=== PATIENT | male | born 1985 | race Caucasian/White ===

== ENCOUNTER 2020-05-28 22:10 | Observation (INO) | payer BC ==
[~2020-05-28] VITALS: Ht 185.4 cm; Wt 125.0 kg
[2020-05-28] MEDS ORDERED: normal saline 1000ML IV soln IVB ONE (22:30)
[2020-05-28 22:51] LABS: BASOPHILS # (AUTO) 0.1 X10'3 (0-0.2); BASOPHILS % (AUTO) 0.4 % (0-1); EOSINOPHILS # (AUTO) 0.1 X10'3 (0-0.9); HEMATOCRIT 45.9 % (42.0-52.0); HEMOGLOBIN 15.8 g/dl (14.0-17.9); LYMPHOCYTES # (AUTO) 1.5 X10'3 (1.1-4.8); LYMPHOCYTES % (AUTO) 11.5 % (21-51); MEAN CORPUSCULAR HEMOGLOBIN 29.3 PG (27.0-31.0); MEAN CORPUSCULAR HGB CONC 34.5 g/dL (33.0-36.5); MEAN CORPUSCULAR VOLUME 85.1 FL (78-98); MEAN PLATELET VOLUME 8.3 FL (7.4-10.4); MONOCYTES # (AUTO) 0.7 X10'3 (0-0.9); MONOCYTES % (AUTO) 5.2 % (2-12); NEUTROPHILS # (AUTO) 10.6 X10'3 (1.8-7.7); NEUTROPHILS % (AUTO) 81.9 % (42-75); PLATELET COUNT 197 X10'3 (140-440); RED CELL DISTRIBUTION WIDTH 13.6 % (11.5-14.5); WHITE BLOOD COUNT 12.9 X10'3 (4.5-11.0)
[2020-05-28 22:58] LABS: ALANINE AMINOTRANSFERASE 50 U/L (12-78); ALBUMIN 4.3 G/DL (3.4-5.0); ALBUMIN/GLOBULIN RATIO 1.2 (1.1-1.5); ALKALINE PHOSPHATASE 60 IU/L (46-116); ANION GAP 7 (8-16); ASPARTATE AMINO TRANSFERASE 22 U/L (10-37); BILIRUBIN,TOTAL 0.5 MG/DL (0.1-1.0); BLOOD UREA NITROGEN 17 MG/DL (7-18); BUN/CREATININE RATIO 14.8 (5.4-32.0); CALCIUM 8.9 MG/DL (8.5-10.1); CHLORIDE 104 MMOL/L (99-107); CREATININE 1.15 MG/DL (0.60-1.10); GLUCOSE 91 MG/DL (70-104); POTASSIUM 3.6 MMOL/L (3.5-5.1); SODIUM 139 MMOL/L (135-145); TOTAL CARBON DIOXIDE 28.2 MMOL/L (24-32); eGFR 72 ML/MIN
[2020-05-28 23:06] LABS: ETHANOL < 0.010 GM/DL (0.0-0.010)
[2020-05-29 00:21] LABS: CLARITY,URINE CLEAR (Clear); COLOR,URINE YELLOW (Yellow); GLUCOSE, URINE NEGATIVE (Neg); KETONES,URINE NEGATIVE (Neg); LEUKOCYTE ESTERASE ,URINE NEGATIVE (Neg); NITRITES, URINE NEGATIVE (Neg); OCCULT BLOOD,URINE NEGATIVE (Neg); PROTEIN,URINE NEGATIVE (Neg); UROBILINOGEN,URINE 0.2 E.U/dL (0.2-1.0)
[2020-05-29 00:26] LABS: UA COLLECTION TYPE VOIDED
[2020-05-29] MEDS ORDERED: NO HOME MEDS (00:27)
[2020-05-29 00:39] LABS: URINE AMPHETAMINE SCREEN NEGATIVE (Neg); URINE BARBITUATE SCREEN NEGATIVE (Neg); URINE BENZODIAZEPINES SCREEN NEGATIVE (Neg); URINE CANNABINOID SCREEN POSITIVE (Neg); URINE COCAINE SCREEN NEGATIVE (Neg); URINE METHADONE SCREEN NEGATIVE (Neg); URINE OPIATE SCREEN NEGATIVE (Neg); URINE PHENCYCLIDINE SCREEN NEGATIVE (Neg)
[2020-05-29] MEDS ORDERED: HYDROcodone/acetaminophen 5mg/325mg tablet PO PRN (00:40)
[2020-05-29] MEDS ORDERED: magnesium hydroxide 30ml (MOM) UD suspension PO PRN (00:40)
[2020-05-29] MEDS ORDERED: mag hydrox/Alum hydrox/simeth 30ml oral suspension PO PRN (00:40)
[2020-05-29] MEDS ORDERED: ondansetron/PF 4mg/2ml inj IV PRN (00:40)
[2020-05-29] MEDS ORDERED: magnesium 2GM in 50ml NS 50 ML IV PRN (00:40)
[2020-05-29] MEDS ORDERED: acetaminophen 325mg tablet PO PRN (00:40)
[2020-05-29] MEDS ORDERED: potassium Cl 40MEQ/1/2NS 520ml 520 ML IV PRN ×2 (00:40)
[2020-05-29] MEDS ORDERED: magnesium 4gm in 100ml NS 100 ML IV PRN (00:40)
[2020-05-29] MEDS ORDERED: potassium Cl 20 mEq SR tablet PO PRN ×2 (00:40)
[2020-05-29] MEDS ORDERED: magnesium Cl slow-release 64mg tablet PO PRN (00:40)
[2020-05-29] MEDS: K and/or MAG REPLACEMENT MC SCH ×5 (08:00→21:30)
--- NOTE | 2020-05-29 09:34 | NUR ---
Dr. Underwood at bedside.
--- NOTE | 2020-05-29 09:46 | NUR ---
lead technical writer at bedside.
--- NOTE | 2020-05-29 11:50 | NUR ---
Witnessed acevedo count w/ Yolanda in preparation of giving pt's Felicita his acevedo; total=$1400 (7x$100; 35x$20).
--- NOTE | 2020-05-29 11:55 | NUR ---
Delivered $1,400.00 acevedo to patient's Felicita. Money counted and verified with Felicita who signed an informal attestation of receipt of acevedo. Placed note on chart.
--- NOTE | 2020-05-29 15:15 | NUR ---
patient arrived from er. no distress noted at thistime. pt able to move all extremities. pt denies chest pain and headache. pt has an iv to left ac. 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 all vs wnl. pt ready to go home.
[2020-05-29 18:00] VITALS: BP 129/64
[2020-05-29 19:13] VITALS: BP 129/64
[2020-05-29 22:00] VITALS: BP 111/75
[2020-05-30 02:00] VITALS: BP 139/60
[2020-05-30 06:30] VITALS: BP 89/54
--- NOTE | 2020-05-30 06:30 | NUR ---
Patient in room PCU 3026. I have received report from MADELIN BRAGA and had the opportunity to ask questions and assume patient care. CALL LIGHT IN REACH. PT CONTEMPLATING AMA HE WANTS TO GO HOME. Addendum: 05/30/20 at 1020 by Joan Maldonado RN Amended: Links added.
[2020-05-30 08:01] LABS: BASOPHILS # (AUTO) 0.1 X10'3 (0-0.2); BASOPHILS % (AUTO) 0.8 % (0-1); EOSINOPHILS # (AUTO) 0.3 X10'3 (0-0.9); EOSINOPHILS % (AUTO) 3.9 % (0-6); HEMATOCRIT 44.7 % (42.0-52.0); HEMOGLOBIN 15.6 g/dl (14.0-17.9); LYMPHOCYTES # (AUTO) 2.2 X10'3 (1.1-4.8); LYMPHOCYTES % (AUTO) 32.8 % (21-51); MEAN CORPUSCULAR HEMOGLOBIN 29.5 PG (27.0-31.0); MEAN CORPUSCULAR HGB CONC 34.8 g/dL (33.0-36.5); MEAN CORPUSCULAR VOLUME 84.8 FL (78-98); MEAN PLATELET VOLUME 8.7 FL (7.4-10.4); MONOCYTES # (AUTO) 0.5 X10'3 (0-0.9); MONOCYTES % (AUTO) 7.7 % (2-12); NEUTROPHILS # (AUTO) 3.7 X10'3 (1.8-7.7); NEUTROPHILS % (AUTO) 54.8 % (42-75); PLATELET COUNT 180 X10'3 (140-440); RED BLOOD COUNT 5.27 X10'6 (4.70-6.10); RED CELL DISTRIBUTION WIDTH 13.4 % (11.5-14.5); WHITE BLOOD COUNT 6.7 X10'3 (4.5-11.0)
[2020-05-30 08:08] LABS: ALANINE AMINOTRANSFERASE 43 U/L (12-78); ALBUMIN 3.7 G/DL (3.4-5.0); ALKALINE PHOSPHATASE 59 IU/L (46-116); ANION GAP 9 (8-16); ASPARTATE AMINO TRANSFERASE 19 U/L (10-37); BILIRUBIN,TOTAL 0.4 MG/DL (0.1-1.0); BLOOD UREA NITROGEN 18 MG/DL (7-18); BUN/CREATININE RATIO 16.1 (5.4-32.0); CALCIUM 8.4 MG/DL (8.5-10.1); CHLORIDE 105 MMOL/L (99-107); CREATININE 1.12 MG/DL (0.60-1.10); GLUCOSE 92 MG/DL (70-104); MAGNESIUM 2.2 MG/DL (1.5-2.4); POTASSIUM 3.9 MMOL/L (3.5-5.1); SODIUM 139 MMOL/L (135-145); TOTAL CARBON DIOXIDE 24.6 MMOL/L (24-32); TOTAL PROTEIN 7.3 G/DL (6.4-8.2); eGFR 74 ML/MIN
--- NOTE | 2020-05-30 11:33 | NUR ---
ALL WRITTEN AND VERBAL ORDERS FOR D/C GIVEN. ALL QUESTIONS ANSWERED. PT STATED HE HAD ALL BELONGINGS HOME WITH FRIEND. PT UNDERSTANDS THAT HE IS NOT TO OPERATE HEAVY EQUIPMENT UNTIL CLEARED BY NEUROLOGIST. PIV REMOVED NO BLEEDING, CANULA INTACT. Addendum: 05/30/20 at 1147 by Joan Malodnado RN Amended: Links added.
== END 2020-05-30 11:25 | disposition home or self-care (01) ==
LOC: ER 22:11 → ED HOLD 05-29 00:37 → PCU 3S 05-29 17:16
PROVIDERS: ADMIT Family Medicine; ATTEND Internal Medicine
DX: R07.89 Other chest pain (principal); R55 Syncope and collapse; I24.9 Acute ischemic heart disease, unspecified
CPT/HCPCS: 36415; 70450; 71045; 80053; 80305; 80320; 81003; 83735; 83880; 84484; 85025; 93005; 93306; 95816; 96360; 99285; G0378; J7030